=== PATIENT | male | born 1950 | race African-American/Black ===

== ENCOUNTER 2023-01-31 08:33 | Outpatient (CLI) | payer MEDICARE ==
[2023-01-31] MEDS ORDERED: Magnevist 469MG/ML 20 ML VIAL ONE (09:30)
== END 2023-01-31 08:34 | disposition home or self-care (01) ==
LOC: CSHMRI 08:33
PROVIDERS: ATTEND Urology
DX: R97.20 Elevated prostate specific antigen [PSA] (principal)
CPT/HCPCS: 72197; 82565